=== PATIENT | male | born 1980 | race Caucasian/White ===

== ENCOUNTER 2022-12-16 00:25 | Emergency (ER) | payer SELFPAY ==
[~2022-12-16] VITALS: Ht 172.7 cm; Wt 61.0 kg
[2022-12-16 00:51] VITALS: BP 129/84; PULSE 77; RESP 16; TEMP 98; O2SAT 100
[2022-12-16 00:51] LABS: BASOPHILS # (AUTO) 0.3 X10'3 (0-0.2); BASOPHILS % (AUTO) 2.3 % (0-1); EOSINOPHILS # (AUTO) 0.7 X10'3 (0-0.9); EOSINOPHILS % (AUTO) 5.2 % (0-6); HEMATOCRIT 43.7 % (42.0-52.0); HEMOGLOBIN 14.9 g/dl (14.0-17.9); LYMPHOCYTES # (AUTO) 4.4 X10'3 (1.1-4.8); LYMPHOCYTES % (AUTO) 35.3 % (21-51); MEAN CORPUSCULAR HEMOGLOBIN 31.3 PG (27.0-31.0); MEAN CORPUSCULAR HGB CONC 34.1 g/dL (33.0-36.5); MEAN CORPUSCULAR VOLUME 91.7 FL (78-98); MEAN PLATELET VOLUME 8.2 FL (7.4-10.4); MONOCYTES # (AUTO) 1.3 X10'3 (0-0.9); MONOCYTES % (AUTO) 10.7 % (2-12); NEUTROPHILS # (AUTO) 5.8 X10'3 (1.8-7.7); NEUTROPHILS % (AUTO) 46.5 % (42-75); PLATELET COUNT 325 X10'3 (140-440); RED BLOOD COUNT 4.77 X10'6 (4.70-6.10); WHITE BLOOD COUNT 12.5 X10'3 (4.5-11.0)
[2022-12-16 00:59] LABS: INR 0.9 INR; PROTHROMBIN TIME 10.1 SECONDS (9.0-12.0)
[2022-12-16 01:04] LABS: ALANINE AMINOTRANSFERASE 27 U/L (12-78); ALBUMIN 4.3 G/DL (3.4-5.0); ALBUMIN/GLOBULIN RATIO 1.3 (1.1-1.5); ALKALINE PHOSPHATASE 62 IU/L (46-116); ANION GAP 8 (8-16); ASPARTATE AMINO TRANSFERASE 22 U/L (10-37); BILIRUBIN,TOTAL 0.4 MG/DL (0.1-1.0); BLOOD UREA NITROGEN 14 MG/DL (7-18); BUN/CREATININE RATIO 14.4 (10.0-20.0); CHLORIDE 102 MMOL/L (99-107); CREATININE 0.97 MG/DL (0.60-1.10); GLUCOSE 96 MG/DL (70-104); POTASSIUM 3.8 MMOL/L (3.5-5.1); SODIUM 138 MMOL/L (135-145); TOTAL CARBON DIOXIDE 27.6 MMOL/L (24-32); TOTAL PROTEIN 7.5 G/DL (6.4-8.2); eCRCL 86 ML/MIN; eGFR 85 ML/MIN
[2022-12-16 01:11] LABS: ETHANOL 208 MG/DL (<10); PRO BRAIN NATRIURETIC PEPTIDE 33 PG/ML (0-125)
[2022-12-16 02:17] LABS: TOTAL CELLS COUNTED 100
[2022-12-16 02:18] LABS: PLATELET ESTIMATE NORMAL
== END 2022-12-16 03:42 | disposition left against medical advice (07) ==
LOC: ER 00:26
DX: R06.02 Shortness of breath (principal); Z53.21 Procedure and treatment not carried out due to patient leaving prior to being seen by health care provider
CPT/HCPCS: 36415; 71045; 71100; 80053; 80320; 83880; 84484; 85007; 85025; 85610; 93005; 99281

== ENCOUNTER 2023-12-12 05:20 | Day surgery (SDC) | payer OTHER ==
[2023-12-05 15:06] LABS: EOSINOPHILS # (AUTO) 0.4 X10'3 (0-0.9); LYMPHOCYTES # (AUTO) 3.6 X10'3 (1.1-4.8); MEAN PLATELET VOLUME 8.7 FL (7.4-10.4); MONOCYTES # (AUTO) 1.1 X10'3 (0-0.9); PRE OP WHITE BLOOD COUNT 9.1 10'3 (4.8-10.8)
[2023-12-05 15:08] LABS: BASOPHILS # (AUTO) 0.3 X10'3 (0-0.2); EOSINOPHILS % (AUTO) 4.5 % (0-6); LYMPHOCYTES % (AUTO) 39.4 % (21-51); MEAN CORPUSCULAR HEMOGLOBIN 30.5 PG (27.0-31.0); MEAN CORPUSCULAR VOLUME 89.5 FL (78-98); MONOCYTES % (AUTO) 12.1 % (2-12); NEUTROPHILS # (AUTO) 3.7 X10'3 (1.8-7.7); PRE OP HEMATOCRIT 41.6 % (42.0-52.0); PRE OP HEMOGLOBIN 14.1 g/dL (14.0-17.9); PRE OP PLATELET COUNT 281 X10'3 (140-440); RED BLOOD COUNT 4.64 X10'6 (4.70-6.10)
[2023-12-05 15:23] LABS: TOTAL CELLS COUNTED 100
[2023-12-05 15:24] LABS: BURR CELLS FEW; PLATELET ESTIMATE NORMAL; SCHISTOCYTES FEW
[2023-12-05 15:26] LABS: ALBUMIN/GLOBULIN RATIO 1.3 (1.1-1.5); ALKALINE PHOSPHATASE 55 IU/L (46-116); BLOOD UREA NITROGEN 18 MG/DL (7-18); BUN/CREATININE RATIO 19.1 (10.0-20.0); CALCIUM 9.1 MG/DL (8.5-10.1); CHLORIDE 108 MMOL/L (99-107); CREATININE 0.94 MG/DL (0.60-1.10); PRE OP ALT 28 U/L (30-65); PRE OP ANION GAP 8 (8-16); PRE OP AST 16 U/L (10-37); PRE OP BILIRUB, TOTAL 0.3 MG/DL (0.0-1.0); PRE OP GLUCOSE 93 MG/DL (70-104); PRE OP POTASSIUM 4.1 MMOL/L (3.4-5.1); PRE OP SODIUM 143 MMOL/L (135-145); TOTAL CARBON DIOXIDE 27.2 MMOL/L (24-32); TOTAL PROTEIN 7.1 G/DL (6.4-8.2); eGFR 88 ML/MIN
[~2023-12-12] VITALS: Ht 167.6 cm; Wt 74.0 kg
[2023-12-12] VITALS (24 sets, daily range): BP systolic 110–182; BP diastolic 56–115; PULSE 54–89; RESP 11–23; TEMP 98; O2SAT 94–100
[~2023-12-12 05:20] MED LIST: IBUP-1984 PO
[2023-12-12] MEDS: famotidine 20mg tablet PO ONE (06:09)
[2023-12-12] MEDS: ringers solution, lacted 1,000 ML IV SCH ×2 (06:09→11:12)
[2023-12-12] MEDS: cefazolin 2gm/D5W 100mL 100 ML IV ONE (06:10)
[2023-12-12] MEDS ORDERED: BUPIVAcaine/PF 2.5mg/ml (0.25%) 10ml vial ONE (06:51)
[2023-12-12] MEDS ORDERED: meperidine/PF 25mg/ml syringe IV PRN ×2 (07:00)
[2023-12-12] MEDS ORDERED: proCHLORperazine 10 MG/2 ml inj IV PRN (07:00)
[2023-12-12] MEDS ORDERED: ondansetron/PF 4mg/2ml inj IV PRN (07:00)
[2023-12-12] MEDS ORDERED: propofol inj 20 ML IV ONE (07:13)
[2023-12-12] MEDS ORDERED: midazolam 1 mg/ML 2ml injection ONE (07:13)
[2023-12-12] MEDS ORDERED: fentaNYL /PF 50mcg/ml 5ml ampule ONE (07:13)
[2023-12-12] MEDS ORDERED: rocuronium 10mg/ml inj IV ONE ×2 (07:13→08:39)
[2023-12-12] MEDS ORDERED: sevoflurane 250ml liquid IH ONE (07:19)
[2023-12-12] MEDS: BUPIVACAINE liposomal/PF 13.3 MG/ML vial IM ONE (08:11)
[2023-12-12] MEDS: LIDOcaine 1% 30ml preserv. free vial ONE (08:11)
[2023-12-12] MEDS: BUPIVAcaine 2.5mg/ml inj 50ml vial (contains preservative) ONE (08:12)
[2023-12-12] MEDS ORDERED: dexamethasone sod phosphate 4mg/ml inj. ONE (08:39)
[2023-12-12] MEDS ORDERED: ondansetron/PF 4mg/2ml inj ONE (09:31)
[2023-12-12] MEDS ORDERED: glycopyrrolate 0.2mg/ml inj ONE (09:33)
[2023-12-12] MEDS ORDERED: neostigmine methylsulfate 1 MG/ML 10ml vial ONE (09:33)
[2023-12-12] MEDS: meperidine/PF 25mg/ml syringe IV PRN (09:53)
[2023-12-12] MEDS: morphine 2 MG/ML inj. syringe IV PRN (10:46)
[2023-12-12] MEDS: morphine 4 MG/ML inj SYRINge IV PRN (11:24)
[2023-12-12] MEDS: oxyCODONE/APAP 5-325mg tablet PO PRN (11:48)
[2023-12-12] MEDS: acetaminophen 1,000mg/100ml IV 100 ML IV STA (12:00)
[2023-12-12] MEDS: ketorolac trometh 30MG/ML vial 30 MG/ML VIAL IV STA (12:01)
== END 2023-12-12 12:30 | disposition home or self-care (01) ==
LOC: OR 05:20 → EDSTATUS 07:30 → OR 12:30 → UNDODISIN 12:30
PROVIDERS: ATTEND Surgery
DX: K43.0 Incisional hernia with obstruction, without gangrene (principal); G89.18 Other acute postprocedural pain; F17.210 Nicotine dependence, cigarettes, uncomplicated; Z79.1 Long term (current) use of non-steroidal anti-inflammatories (NSAID); Z98.890 Other specified postprocedural states
CPT/HCPCS: 36415; 49594; 64488; 80053; 82948; 85025; 93005; C1781; C9290; J0131; J0690; J1100; J1885; J2175; J2250; J2270; J2405; J2704; J2710; J3010; J3490; J7030; J7120; Z7506; Z7508; Z7512; 85007; A4215; A4618